=== PATIENT | female | born 1950 | race Caucasian/White ===

== ENCOUNTER 2022-06-01 05:59 | Day surgery (SDC) | payer MEDICARE ==
[2022-05-25 11:42] LABS: BASOPHILS % (AUTO) 0.9 % (0-1); EOSINOPHILS # (AUTO) 0.1 X10'3 (0-0.9); EOSINOPHILS % (AUTO) 1.9 % (0-6); LYMPHOCYTES # (AUTO) 1.3 X10'3 (1.1-4.8); LYMPHOCYTES % (AUTO) 27.5 % (21-51); MEAN CORPUSCULAR HEMOGLOBIN 30.8 PG (27.0-31.0); MEAN CORPUSCULAR HGB CONC 34.3 g/dL (33.0-36.5); MEAN CORPUSCULAR VOLUME 89.9 FL (78-98); MEAN PLATELET VOLUME 8.8 FL (7.4-10.4); MONOCYTES # (AUTO) 0.4 X10'3 (0-0.9); MONOCYTES % (AUTO) 8.7 % (2-12); NEUTROPHILS # (AUTO) 2.9 X10'3 (1.8-7.7); PRE OP HEMATOCRIT 36.8 % (35.0-45.0); PRE OP HEMOGLOBIN 12.6 g/dL (12.0-16.0); PRE OP PLATELET COUNT 157 X10'3 (140-440); RED CELL DISTRIBUTION WIDTH 13.6 % (11.5-14.5)
[2022-05-25 11:55] LABS: PRE OP PROTIME 10.6 SECONDS (9.0-12.0)
[2022-05-25 12:02] LABS: ALBUMIN 3.7 G/DL (3.4-5.0); ALBUMIN/GLOBULIN RATIO 1.1 (1.1-1.5); ALKALINE PHOSPHATASE 95 IU/L (46-116); BLOOD UREA NITROGEN 19 MG/DL (7-18); BUN/CREATININE RATIO 26.4 (6.6-38.0); CALCIUM 8.7 MG/DL (8.5-10.1); CHLORIDE 105 MMOL/L (99-107); CREATININE 0.72 MG/DL (0.40-0.90); PRE OP ALT 35 U/L (30-65); PRE OP ANION GAP 8 (8-16); PRE OP AST 54 U/L (10-37); PRE OP BILIRUB, TOTAL 0.8 MG/DL (0.0-1.0); PRE OP GLUCOSE 90 MG/DL (70-104); PRE OP POTASSIUM 4.5 MMOL/L (3.4-5.1); PRE OP SODIUM 142 MMOL/L (135-145); TOTAL CARBON DIOXIDE 29.4 MMOL/L (24-32); eGFR 80 ML/MIN
[~2022-06-01] VITALS: Ht 172.7 cm; Wt 68.2 kg
[2022-06-01] VITALS (12 sets, daily range): BP systolic 104–128; BP diastolic 47–74
[~2022-06-01 05:59] MED LIST: CHOL400T32 PO; EPIN0.3P3 IM; GABA600T13 PO; MORP-92 ICATH; MULT-1074 PO; OMEG1CAP46 PO; SERT50TA PO; VOLTAREN GEL TOP; ceFAZolin inj. 2,000 MG in dextrose 5%-water 100 ML IV ONE; famotidine 20mg tablet PO ONE; ringers solution, lacted 1,000 ML IV SCH
[2022-06-01] MEDS ORDERED: fentaNYL/PF 50MCG/1 ML 2ML syringe IV PRN ×2 (07:05)
[2022-06-01] MEDS ORDERED: morphine 4 MG/ML inj SYRINge IV PRN (07:05)
[2022-06-01] MEDS ORDERED: hydrALAZINE 20mg/ml inj. IV PRN (07:05)
[2022-06-01] MEDS ORDERED: morphine 2 MG/ML inj. syringe IV PRN (07:05)
[2022-06-01] MEDS ORDERED: ringers solution, lacted 1,000 ML IV SCH (07:05)
[2022-06-01] MEDS ORDERED: labetalol 20mg/4ml (5mg/ml) syringe IV PRN (07:05)
[2022-06-01] MEDS ORDERED: ondansetron/PF 4mg/2ml inj IV PRN (07:05)
[2022-06-01] MEDS ORDERED: LIDOcaine 0.5% (5mg/ml) 50ml vial ONE (07:07)
[2022-06-01] MEDS ORDERED: BUPIVAcaine/PF 2.5mg/ml (0.25%) 10ml vial ONE (07:11)
[2022-06-01] MEDS ORDERED: BUPIVAcaine/PF 2.5 mg/ml (0.25%) 30ml vial ONE (07:12)
[2022-06-01] MEDS ORDERED: midazolam 1 mg/ML 2ml injection ONE (08:00)
[2022-06-01] MEDS ORDERED: fentaNYL/PF 50MCG/1 ML 2ML syringe ONE (08:00)
--- NOTE | 2022-06-01 09:30 | NUR ---
Received from OR via [facility], accompanied by Anesthesiologist DR YUNG and report given by Anesthesiolgist. PT IS GROGGY BUT RESPONDS TO VERBAL STIMULI. PT PLACED ON BEDSIDE MONITOR, VSS. PT IS IN SB WITH RATE IN HIGH 40'S-LOW 50'S. PT IS ON RA AND TOLERATING WELL WITH O2 SAT >95%. PT HAS 22G PIV TO LEFT HAND WITH LR INFUSING ORDERED. PT HAS DRSG TO RT HAND THAT IS CDI. ICE PACK PLACED. PT IS ABLE TP MOVED FINGERS ON RT HAND. PT DENIES PAIN AT THIS TIME. WILL CONTINUE TO ASSESS.
--- NOTE | 2022-06-01 11:20 | NUR ---
ALL DISCHARGE CRITERIA HAS BEEN MET. VSS, PAIN AT A TOLERABLE LEVEL, SAFELY ABLE TO AMBULATE AND TRANSFER SELF. IV TAKEN OUT WITHOUT ANY COMPLICATIONS. ALL DISCHARGE INSTRUCTIONS COVERED WITH PATIENT AND ALL QUESTIONS ANSWERED. PATIENT TAKEN OUT VIA WHEELCHAIR TO PERSONAL VEHICLE WHERE FAMILY/FRIEND DROVE PATIENT HOME.
== END 2022-06-01 11:12 | disposition home or self-care (01) ==
LOC: PAS 05:59
PROVIDERS: ATTEND Orthopaedic Surgery Hand Surgery
DX: S63.591A Other specified sprain of right wrist, initial encounter (principal); M65.841 Other synovitis and tenosynovitis, right hand; F32.9 Major depressive disorder, single episode, unspecified; X58.XXXA Exposure to other specified factors, initial encounter; Y93.89 Activity, other specified; Y92.89 Other specified places as the place of occurrence of the external cause; Y99.8 Other external cause status; Z79.899 Other long term (current) drug therapy; Z98.890 Other specified postprocedural states; Z79.01 Long term (current) use of anticoagulants; Z20.822 Contact with and (suspected) exposure to COVID-19; J44.9 Chronic obstructive pulmonary disease, unspecified; Z90.710 Acquired absence of both cervix and uterus; Z90.49 Acquired absence of other specified parts of digestive tract; Z88.2 Allergy status to sulfonamides; Z88.8 Allergy status to other drugs, medicaments and biological substances
CPT/HCPCS: 25116; 29846; 36415; 80053; 82948; 85025; 85610; 85730; 87811; 93005; A6222; J0690; J2250; J3010; J3490; J7030; J7060; J7120; Z7506; Z7512; A4215; A4618; A7000

== ENCOUNTER 2023-11-17 14:11 | Outpatient (CLI) | payer MEDICARE ==
[~2023-11-17 14:11] MED LIST changes: -ceFAZolin inj. 2,000 MG in dextrose 5%-water 100 ML IV ONE; -famotidine 20mg tablet PO ONE; -ringers solution, lacted 1,000 ML IV SCH
== END 2023-11-17 23:59 | disposition home or self-care (01) ==
LOC: RAD 14:11
PROVIDERS: ATTEND Family Medicine
DX: R13.12 Dysphagia, oropharyngeal phase (principal)
CPT/HCPCS: 74230

== ENCOUNTER 2025-03-30 06:20 | Outpatient (CLI) | payer MEDICARE ==
[~2025-03-30 06:20] MED LIST changes: +GABA-1405 PO; -GABA600T13 PO
[2025-03-30] MEDS ORDERED: LIDOcaine 1%/PF 5ML 10 MG/ML VIAL ONE (06:33)
[2025-03-30] MEDS ORDERED: GADOTERATE MEGLUMINE 7.5 MMOL/15 ML VIAL IV ONE (06:33)
[2025-03-30] MEDS ORDERED: LIDOcaine 1% 30ml preserv. free vial ONE (06:33)
[2025-03-30] MEDS ORDERED: iohexol 300 MG/1 ML 50ml polymer ONE (06:33)
--- NOTE | 2025-03-30 08:25 | RADIOLOGY REPORT ---
C-ARM FLUOROSCOPY: PROCEDURE: Right wrist MRI arthrogram injection FLUOROSCOPY TIME: 0.1 DAP: 1 mgy FINDINGS: Spot intraoperative C arm radiographs demonstrating right wrist injection for MRI arthrography. IMPRESSION: Please refer to surgical report for detailed findings.
--- NOTE | 2025-03-30 16:03 | RADIOLOGY REPORT ---
CLINICAL INFORMATION: PAIN IN RIGHT WRIST. COMPARISON: Correlation made to same-day arthrogram injection images. TECHNIQUE: Multisequence multiplanar MR arthrogram images of the right wrist were obtained without co ntrast. FINDINGS: TFCC: Large full-thickness perforation of the articular disc of the TFCC with contrast extending thro ugh the defect into the DRUJ. There is also indistinctness of the fibers of the ulnar styloid and fov eal attachments of the TFCC, likely due to partial tears. Ulnar meniscal homologue is also indistinct in appearance, and there is contrast interposed between the ulnar styloid and the ulnar collateral l igament, suspected partial tear. ULNAR VARIANCE: Neutral. DRUJ: No dislocation or subluxation. LIGAMENTS: There are areas of full-thickness communication of the scapholunate ligament without widen ing of the scapholunate interval, likely due to perforations. Lunotriquetral ligament appears intact. No other evidence of ligamentous injury identified. FLEXOR TENDONS: Unremarkable signal intensity and course. No significant tendinosis, tenosynovitis, o r tear. CARPAL TUNNEL: Unremarkable. Normal appearance of the median nerve and flexor retinaculum. EXTENSOR TENDONS: Mild tendinosis of the extensor carpi ulnaris tendon. Ill-defined thin intrasubsta nce signal in the extensor carpi ulnaris tendon near the level of the ulnar styloid, possible small t hin longitudinal split tear. BONES/JOINTS: No fracture or focal marrow contusion OTHER: Motion limited study. IMPRESSION: 1. Motion limited study. 2. Large full-thickness perforation of the articular disc of the TFCC. There is also indistinctness o f the fibers of the ulnar styloid and foveal attachments, likely from partial tears. 3. Suspected partial tear of the ulnar attachment of the ulnar collateral ligament. Probable sprain o r partial tear involving the ulnomeniscal homologue. 4. Tendinosis of the extensor carpi ulnaris tendon with possible thin Longitudinal split tear near th e level of the ulnar styloid. 5. Likely small perforations in the scapholunate ligament without widening of the scapholunate interv al to suggest significant scapholunate ligament tear. 6. Additional findings as described above.
== END 2025-03-30 23:59 | disposition home or self-care (01) ==
LOC: RAD 06:20
PROVIDERS: ATTEND Orthopaedic Surgery Hand Surgery
DX: S69.81XA Other specified injuries of right wrist, hand and finger(s), initial encounter (principal); M25.531 Pain in right wrist; M77.8 Other enthesopathies, not elsewhere classified; X58.XXXA Exposure to other specified factors, initial encounter; Y93.89 Activity, other specified; Y92.89 Other specified places as the place of occurrence of the external cause; Y99.8 Other external cause status
CPT/HCPCS: 25246; 73222; 77002; A9575; J2003; J3490; Q9967

== ENCOUNTER 2025-05-30 12:47 | Outpatient (CLI) | payer MEDICARE ==
--- NOTE | 2025-05-30 15:47 | RADIOLOGY REPORT ---
CLINICAL HISTORY: UNSP TEAR OF UNSP MENISCUS, CURRENT INJURY, RIGHT KNEE, INIT COMPARISON: No prior imaging of the right knee was available for comparison at the time of dictation. TECHNIQUE: Multisequence multiplanar MRI images of the right knee were obtained without contrast. FINDINGS: Cruciate ligaments: ACL and PCL are intact. Extensor mechanism: Quadriceps mechanism and patellar tendon are intact. Collateral ligaments: Medial and lateral collateral ligaments are intact and otherwise unremarkable. Menisci: Horizontal tear involving the anterior horn, body, and posterior horn of the lateral meniscus with superimposed blunting of the free edge at the posterior horn, possible superimposed free edge component of the tear. Also can not exclude multidirectional component of the tear of the posterior horn/ body junction. There is no definite visualized meniscal tissue at the expected location of the posterior horn of the medial meniscus, may be due to prior meniscal surgery or tear. There is extrusion of the body of the medial meniscus, with extension of the body of the medial meniscus into the superior gutter, interposed between the MCL and medial femoral condyle. Cartilage: There is [id number] chondral fissuring at the central trochlea. Chondral thinning of the medial and lateral compartments with mild chondral fissuring at the weight-bearing zone of the lateral femoral condyle. Full- thickness chondral loss at the posterior flexion zone of the lateral femoral condyle. Bones: No acute fracture or focal marrow contusion. Joint fluid: Small joint effusion. Small popliteal cyst. Other: No other significant findings. IMPRESSION: 1. Lateral meniscal tear as detailed above. 2. No visualized meniscal tissue at the expected location of the posterior horn of the medial meniscus, may be sequelae of prior postsurgical changes or tear. There is extrusion of the body of the medial meniscus and extension of meniscal tissue into the superior gutter. 3. Tricompartmental chondromalacia as described above. 4. Small joint effusion and small popliteal cyst.
== END 2025-05-30 23:59 | disposition home or self-care (01) ==
LOC: MRI 12:47
PROVIDERS: ATTEND Family Medicine
DX: S83.281A Other tear of lateral meniscus, current injury, right knee, initial encounter (principal); M94.261 Chondromalacia, right knee; M25.461 Effusion, right knee; M25.862 Other specified joint disorders, left knee; X58.XXXA Exposure to other specified factors, initial encounter; Y93.89 Activity, other specified; Y92.89 Other specified places as the place of occurrence of the external cause; Y99.8 Other external cause status
CPT/HCPCS: 73721